=== PATIENT | male | born 1980 | race Caucasian/White ===

== ENCOUNTER 2018-12-12 17:32 | Emergency (ER) | payer BC ==
[2018-12-12 18:16] VITALS: TEMP 97.1
[2018-12-12] MEDS ORDERED: HYDROcodone 10MG/APAP 325MG 1 EA TAB PO ONE (18:20)
--- NOTE | 2018-12-12 18:56 | CT ---
CT ABDOMEN AND PELVIS WITHOUT CONTRAST. 12/12/2018 CLINICAL HISTORY: Left flank pain COMPARISON: None TECHNIQUE: Axial 2.[address] imaging of the abdomen and pelvis. Reformatted 2 mm coronal and sagittal images reviewed. Examination was performed according to our departmental dose-optimization program, which includes automated exposure control, adjustment of the mA and/or kV according to patient size and/or use of iterative reconstruction technique. FINDINGS: LOWER THORAX: Minimal left lower lobe and lingula atelectasis. The heart is upper normal in size. No pericardial fluid. ABDOMEN: LIVER/GALLBLADDER: Liver is normal in size and contour. There are several very small hypodensities throughout the liver with the largest in the right lobe, 7 mm. The largest demonstrate fluid density values. The smaller are difficult to fully characterize due to the small size. Normal gallbladder. SPLEEN/PANCREAS: Normal spleen. Normal pancreas. Accessory splenule anterior to the main splenic body. KIDNEYS/ADRENAL GLANDS: Normal adrenal glands. Normal right and left kidney. RETROPERITONEAL VESSELS/NODES: Normal aorta and inferior vena cava caliber. There is enlarged left inferior periaortic lymph node, 3.8 x 1.0 x 0.8 cm. The right and left kidney appear normal. No hydronephrosis or stone. BOWEL: Small hiatal hernia. Normal remaining stomach. Normal small bowel loops. Appendix is not visualized. Normal colon. MESENTERY/PERITONEUM: No adenopathy. No ascites. There is mild diastases recti. Ventral abdominal wall hernia mesh noted. No recurrent hernia. No free air. PELVIS: BLADDER: Normal bladder. GENITAL ORGANS: Normal prostate. PERITONEUM: No pelvic free fluid. No pelvic adenopathy. BONES AND SOFT TISSUES: Mildly enlarged left groin lymph node, 3.9 x 1.4 x 1.4 cm. Mild lower thoracic and lumbar spondylosis. Unremarkable bony pelvis. Normal hips. IMPRESSION: 1. No acute finding within the abdomen or pelvis. 2. Small hiatal hernia. 3. Numerous hypodensities throughout the liver. The largest is 7 mm consistent with a cyst. The additional smaller lesions are difficult to fully characterize due to the small size but statistically, probably represent tiny cysts. 4. Mild left inferior periaortic and left groin nonspecific lymphadenopathy. Electronically signed by: Sweta Chew DO 12/12/2018 6:53 PM TEMPLATE CLERK
--- NOTE | 2018-12-12 19:27 | ED.PDOC ---
History of Present Illness - General Chief Complaint: Abdominal Pain Stated Complaint: left sided abdominal pain after coughing Time Seen by Provider: 12/12/18 18:19 Information Source: patient, Vital Signs reviewed Exam Limitations: no limitations - History of Present Illness Initial Comments: c/o left sided abdominal pain after a coughing paroxysm. Assonet something pop. He is worried he injured something internally. He is currently on abx for a "sinus infection". Abdominal Pain Onset Location: LUQ Pain Radiation: no radiation Quality: severe, sharpness Timing/Duration: 1/2 hour Improving Factors: other - splinting Worsening Factors: movement, other - cough or deep breathing Associated Symptoms: denies symptoms Review of Systems - Review of Systems Constitutional: States: see HPI EENTM: States: see HPI Respiratory: States: cough. Denies: short of breath, wheezing Cardiology: States: no symptoms reported. Denies: chest pain Gastrointestinal/Abdominal: States: see HPI. Denies: nausea, vomiting Genitourinary: States: no symptoms reported Musculoskeletal: States: see HPI Skin: States: no symptoms reported Neurological: States: no symptoms reported Endocrine: States: no symptoms reported Hematologic/Lymphatic: States: no symptoms reported Past Medical History (General) - Patient Medical History Hx Stroke: No Hx Congestive Heart Failure: No Hx Diabetes: No Surgical History: appendectomy - Vaccination History Hx Influenza Vaccination: No - Social History Hx Tobacco Use: Yes Family Medical History - Family History Father Family History: Unknown Living Status: Unknown Physical Exam - Physical Exam General Appearance: Alert, Anxious, Other - uncomfortable Neck: supple, normal inspection Respiratory: lungs clear, normal breath sounds, no respiratory distress, no accessory muscle use Cardiovascular/Chest: regular rate, rhythm, no JVD Gastrointestinal/Abdominal: soft, no organomegaly, tenderness - LUQ Back Exam: normal inspection, no vertebral tenderness Extremity: normal range of motion, normal inspection Neurologic: alert, normal mood/affect, oriented x 3 Skin Exam: normal color, warm/dry Special Observations: C/O out of proportion Progress - Progress Progress: 12/12/18 19:16 Up & about. Less pain. 12/13/18 04:53 ASSESSMENT: 38 yo male with the acute onset of LUQ/flank pain after coughing. Assonet a pop. Mild tenderness on palpation. Worse with deep breathing or trunk rotation. CT reveals no internal cause. PLAN: 1. Discharge 2. PCP f/u 3. OTC meds - EKG/XRAY/CT CT Ordered: Yes - hepatic cysts Departure - Departure Clinical Impression: Abdominal pain Qualifiers: Abdominal location: left upper quadrant Qualified Code(s): R10.12 - Left upper quadrant pain Time of Disposition: 19:16 Disposition: Discharge to Home or Self Care Condition: Good Departure Forms: ED Discharge - Pt. Copy, Patient Portal Self Enrollment Instructions: DI for Abdominal Pain-Adult Referrals: Ortega Phan MD [Primary Care Provider] - 1-2 Days Prescriptions: Acetaminophen W/ Codeine [Tylenol W/ CODEINE #3] 1 ea PO Q8HRS PRN 5 Days #15 PRN Reason: Moderate Pain Home Medications: Ambulatory Orders Acetaminophen W/ Codeine [Tylenol W/ CODEINE #3] 1 ea PO Q8HRS PRN 5 Days #15 12/12/18 Albuterol Sulfate [Proair Hfa] 108 mcg IN PRN 12/12/18 Azithromycin [Zithromax Z-Shailesh] 250 mg PO DAILY 12/12/18 Guaifenesin [Mucinex] 600 mg PO DAILY 12/12/18
[2018-12-12 19:36] VITALS: BP 121/83; O2SAT 98
== END 2018-12-12 19:35 | disposition home or self-care (01) ==
LOC: ER 17:32 → EDSEX 17:32 → ER 19:35
DX: R10.12 Left upper quadrant pain (principal); R05 Cough; Z90.49 Acquired absence of other specified parts of digestive tract; Z87.891 Personal history of nicotine dependence

== ENCOUNTER → 2019-06-09 | Outpatient (CLI) | payer BC ==
--- NOTE | 2019-06-10 09:49 | US ---
EXAM DESCRIPTION: Soft Tissue,Extremity: ULTRASOUND. CLINICAL HISTORY: 39 years Male M11.80. Mass in the left popliteal fossa. COMPARISON: None Available. TECHNIQUE: Transcutaneous scanning: Anthony-scale and Doppler modes. FINDINGS: No dominant soft tissue mass or distinct cyst. No parenchymal edema or large calcifications. Vascular structures are visualized. IMPRESSION: No Varner's cyst in the left popliteal fossa. Electronically signed by: Jb Saucedo MD 06/10/2019 9:47 AM CDT
== END ==
LOC: US 13:39
PROVIDERS: ATTEND Nurse Practitioner Family
DX: M11.80 Other specified crystal arthropathies, unspecified site (principal)

== ENCOUNTER 2020-01-19 18:56 | Emergency (ER) | payer BC ==
[2020-01-19 19:14] VITALS: TEMP 97.6
--- NOTE | 2020-01-19 19:14 | ED.PDOC ---
History of Present Illness - General Chief Complaint: Chest Pain/WI Stated Complaint: chest pain Time Seen by Provider: 01/19/20 19:04 Source: patient, family Additional Information: 40yo M presents for evaluation of CP. Symptoms were noted on waking from a nap. The patient did yard work earlier today without issue. The pain is located in the L upper chest and shoulder. The discomfort is aching and constant. Does not radiate to the arm or jaw. He has no central chest pressure. He has a sharp, grabbing pain with deep breath. Discomfort is worse with movement and lifting. No correlation to exertion. No hx of heart disease, DM or hypertension. He is a smoker. No recent illness. Denies family hx of heart disease. No other reported issues. - History of Present Illness Timing/Duration: 1-3 hours Severity/Quality: moderate Chest Pain Radiation: no radiation Activities at Onset: rest Allergies/Adverse Reactions: Allergies NO KNOWN ALLERGY Allergy (Verified 12/12/18 18:14) Home Medications: Ambulatory Orders Acetaminophen W/ Codeine [Tylenol W/ CODEINE #3] 1 ea PO Q8HRS PRN 5 Days #15 12/12/18 Albuterol Sulfate [Proair Hfa] 108 mcg IN PRN 12/12/18 Azithromycin [Zithromax Z-Shailesh] 250 mg PO DAILY 12/12/18 Guaifenesin [Mucinex] 600 mg PO DAILY 12/12/18 Review of Systems - Review of Systems Constitutional: Denies: chills, fever EENTM: States: no symptoms reported Respiratory: Denies: cough, short of breath, wheezing Cardiology: States: chest pain. Denies: palpitations Gastrointestinal/Abdominal: Denies: abdominal pain, nausea, vomiting Genitourinary: States: no symptoms reported Musculoskeletal: States: muscle pain. Denies: joint pain, neck pain Skin: Denies: change in color, rash Neurological: Denies: headache, numbness, weakness Endocrine: States: no symptoms reported Hematologic/Lymphatic: States: no symptoms reported Past Medical History (General) - Patient Medical History Hx Stroke: No Hx Congestive Heart Failure: No Hx Diabetes: No - Vaccination History Hx Influenza Vaccination: No - Social History Hx Tobacco Use: Yes Family Medical History - Family History Father Family History: Unknown Living Status: Unknown Physical Exam - Physical Exam General Appearance: Alert, Comfortable Eyes, Ears, Nose, Throat Exam: PERRL/EOMI, normal ENT inspection Neck: non-tender, full range of motion, supple, normal inspection Respiratory: normal breath sounds, no respiratory distress, other - Tenderness to left upper chest wall Cardiovascular/Chest: normal peripheral pulses, regular rate, rhythm, no edema Gastrointestinal/Abdominal: normal bowel sounds, non tender, soft Extremity: normal range of motion, non-tender, normal inspection Neurologic: no motor/sensory deficits, alert, normal mood/affect, oriented x 3 Skin Exam: normal color, warm/dry Progress - Progress Progress: 01/19/20 19:22 DDX: Atypical chest pain, msk, spasm, pleural pain, ACS, arrhythmia, infection Wilmar Maynard MD. #[id number] 01/19/20 20:10 The patient has unremarkable EKG and Trop. His pain is atypical. He has risk factors of weight and smoking. He has no hx of HTN, DM or prior heart disease. He denies hx of family heart disease. His HEART score is <3. We discussed results extensively. We discussed options for care including discharge for close outpatient followup, repeat trop in the ED or admission for observation. At this time, the patient feels improved and strongly prefers discharge. This is reasonable given his risk profile. We discussed return warnings. All questions answered. It was a pleasure to care for this patient today. - Results/Orders Results/Orders: Laboratory Results - last 24 hr 01/19/20 01/19/20 19:08 19:08 WBC 11.5 H RBC 5.43 Hgb 14.7 Hct 45.5 MCV 83.7 MCH 27.2 MCHC 32.4 L RDW 14.8 H Plt Count 319 MPV 9.0 Absolute Neuts (auto) 7.30 H Absolute Lymphs (auto) 3.30 Absolute Monos (auto) 0.60 Absolute Eos (auto) 0.30 Absolute Basos (auto) 0.00 Neutrophils % 63.2 Lymphocytes % 28.6 Monocytes % 5.1 Eosinophils % 2.8 Basophils % 0.3 Sodium 140 Potassium 3.6 Chloride 103 Carbon Dioxide 28 Anion Gap 12.6 BUN 13 Creatinine 1.10 BUN/Creatinine Ratio 11.8 Random Glucose 126 H Serum Osmolality 281.0 Calcium 9.3 Creatine Kinase 63 CK-MB (CK-2) 1.3 CK-MB (CK-2) % Not Reportable Troponin I < 0.02 Last Vital Signs Temp 97.6 F 01/19/20 19:03 Pulse 94 H 01/19/20 20:00 Resp 14 01/19/20 20:00 BP 134/96 01/19/20 20:00 Pulse Ox 94 L 01/19/20 20:00 - EKG/XRAY/CT EKG: Sinus, no ST T wave changes Comments: 87. Normal axis, nl intervals. XRAY: chest - No acute findings. See formal read. Departure - Departure Clinical Impression: Chest pain Qualifiers: Chest pain type: unspecified Qualified Code(s): R07.9 - Chest pain, unspecified Time of Disposition: 20:08 Disposition: Discharge to Home or Self Care Condition: Good Departure Forms: ED Discharge - Pt. Copy, Patient Portal Self Enrollment Instructions: DI for Chest Pain Referrals: Ziyad Ley MD [Affiliate Staff] - 1-2 Weeks Home Medications: Ambulatory Orders Acetaminophen W/ Codeine [Tylenol W/ CODEINE #3] 1 ea PO Q8HRS PRN 5 Days #15 12/12/18 Albuterol Sulfate [Proair Hfa] 108 mcg IN PRN 12/12/18 Azithromycin [Zithromax Z-Shailesh] 250 mg PO DAILY 12/12/18 Guaifenesin [Mucinex] 600 mg PO DAILY 12/12/18 Additional Instructions: Please follow up with a primary doctor or technical project manager for ongoing assessment. Return immediately for new or worse symptoms.
[2020-01-19] MEDS: ASPIRIN TABLET 325 MG TAB PO ONE (19:17)
--- NOTE | 2020-01-19 19:31 | RAD ---
EXAM DESCRIPTION: Chest,1 View CLINICAL HISTORY:40 years Male, Chest pain Comparison: None FINDINGS: No focal lung consolidation. No pleural effusion. No pneumothorax. Cardiomediastinal silhouette is mildly enlarged. No acute osseous abnormality. IMPRESSION: No acute cardiopulmonary disease. Electronically signed by: Chuck Ledesma DO 01/19/2020 7:30 PM CDT
[2020-01-19 20:09] VITALS: BP 134/96; O2SAT 94
== END 2020-01-19 20:41 | disposition home or self-care (01) ==
LOC: ER 18:56
DX: R07.9 Chest pain, unspecified (principal); F17.200 Nicotine dependence, unspecified, uncomplicated